=== PATIENT | male | born 1970 | race Caucasian/White ===

== ENCOUNTER 2018-01-12 19:48 | Emergency (ER) | payer OTHER ==
[~2018-01-12] VITALS: Ht 185.4 cm; Wt 113.4 kg
[2018-01-12 22:33] VITALS: BP 151/95
[2018-01-12] MEDS ORDERED: HYDROcodone-ACET 10/325MG TAB PO ONE (23:15)
== END 2018-01-12 23:15 | disposition home or self-care (01) ==
LOC: ER 19:48
DX: G24.3 Spasmodic torticollis (principal); M62.831 Muscle spasm of calf
CPT/HCPCS: 72040